=== PATIENT | female | born 1990 | race Caucasian/White ===

== ENCOUNTER 2016-08-22 21:05 | Emergency (ER) | payer MEDICAID ==
[2016-08-22 21:38] VITALS: TEMP 98.6; BMI 39.4
[2016-08-22 22:09] LABS: AUTOMATED BASOPHIL 0.6 % (0-2); AUTOMATED EOSINOPHIL 2.3 % (0-5); AUTOMATED LYMPH 29.8 % (17-44); AUTOMATED MONOCYTE 6.1 % (3-10); AUTOMATED NEUTROPHIL 61.2 % (45-76); MPV 8.4 fL (7.4-10.4)
[2016-08-22 22:10] LABS: LEUKOCYTES/URINE NEG (NEGATIVE); NITRITE/URINE NEG (NEGATIVE); RBC/URINE 0-2 (0-5); URINE OCCULT BLOOD NEG (NEG/TRACE); WBC/URINE 0-2 (0-5)
[2016-08-22 22:18] LABS: BLOOD UREA NITROGEN 8 MG/DL (7-17); CALCULATED OSMOLALITY 273 MOs/Kg (270-290); CHLORIDE 105 mEq/L (98-107); GLUCOSE 136 MG/DL (70-99); SODIUM LEVEL 142 mEq/L (137-146); TOTAL PROTEIN 7.7 G/DL (6.3-8.2)
--- NOTE | 2016-08-22 22:46 | EDPRACDOC ---
- General Information Chief Complaint: Abdominal Pain Stated Complaint: ABDOMINAL PAIN Time Seen by Provider: 08/22/16 22:36 Information Source: Patient Mode Of Arrival: Car Home Medications: Home Medications Tramadol HCl [Ultram] 50 mg PO Q4-6H #30 tablet 06/21/16 Ondansetron [Zofran Odt] 4 mg PO TID PRN #10 tab.rapdis 08/22/16 Ranitidine HCl 300 mg PO DAILY #30 tablet 08/22/16 Sulfamethoxazole/Trimethoprim [Bactrim Ds Tablet] 1 tab PO BID #20 tab 08/22/16 Allergies/Adverse Reactions: Allergies Allergy/AdvReac Type Severity Reaction Status Date / Time hydrocodone Allergy Severe Itching Verified 06/21/16 19:42 codeine Allergy Rash-Locali Verified 06/21/16 19:42 zed - History of Present Illness Onset: 4 months HPI: PT COMPLAINS OF UPPER AND LOWER ABD PAIN X 4 MTHS, STATES PAIN IS ACHING, HAS HAD NAUSEA BUT NO VOMITING, NO FEVER OR CHILLS, PT STATES NO MENSTRUAL PERIOD X 4 MTHS, STATES THAT SHE HAS TAKEN HOME PREG TEST X 2 WITHOUT RELIEF. PT ALSO COMPLAINS OF "BOIL" UNDER RIGHT ARM THAT IS DRAINING. Pain Location: Reports: Diffuse Pain Context: Reports: Spontaneous Pain Severity: Mild Pain Quality: Reports: Aching, Burning Pain Radiation: Reports: No Radiation Last Menstrual Period: 4 months ago : (unknown) Abortus: 2 Control Method: Reports: None Female Abdominal History: Reports: Abdominal Surgery () Modifying Factors: improves with: Food, Position, Movement Female Associated Signs & Symptoms: Reports: Nausea. Denies: Frequency, Vaginal Bleeding, Vomiting, Hematemesis, Anorexia, Diarrhea, Melena, Dysuria, Fever, Urgency, Hematuria, Chills, Vaginal Discharge Oral Intake: Normal Urinary Output: Normal ED Past Medical History - History Reviewed Yes Nurses notes reviewed and agree except as marked - Patient Medical History Respiratory History: Reports: Asthma GI/ History: Reports: Gastroesophageal Reflux Psychological History: Denies: Depression Surgical History: Reports: Tonsillectomy/Adnoidectomy - Family Medical History Reports: Hypertension, Diabetes, Cancer, Cardiac Disorders. Denies: Stroke - Social Medical History Smoking Status: Heavy tobacco smoker (5 or more cigarettes/day or daily pipe/ cigar) ETOH: None Substance Abuse: None EDM Review of Systems - Review of Systems Constitutional: negative: Chills, Fever Eyes: negative: Blurred Vision, Double Vision Ears: negative: Drainage Throat: negative: Pain Nose: negative: Congestion, Discharge Respiratory: negative: Cough, Shortness of Breath, Wheezing Cardiovascular: negative: Chest Pain, Palpitations Gastrointestinal: Nausea, Pain. negative: Diarrhea, Vomiting Genitourinary: negative: Dysuria, Frequency, Vaginal Discharge, Vaginal Bleeding Neurological: negative: Dizziness, Headache, Numbness, Weakness Musculoskeletal: No Symptoms Reported Integumentary: Wound - Physical Exam Constitutional: Alert (Awake), No apparent distress Oriented to: Time, Person, Place Last recorded Vital Signs: Last Vital Signs Temp 98.6 F 08/22/16 21:30 Pulse 95 08/22/16 21:30 Resp 20 08/22/16 21:30 BP 154/94 08/22/16 21:30 Pulse Ox 98 08/22/16 21:30 Oxygen Pulse Oxygen Saturation 98 O2 Device Room Air Oxygen Flow Rate Fraction of Inspired Oxygen ( FIO2) - HEENT Head: Normal ( normocephalic) Eye Exam: Normal (PERRL, EOMI, Sclera white) Oropharynx: Normal (Pharynx:Moist without exudate,Gums-no swelling) Tympanic Membrane: Normal ENT EAC: Normal TMJ: Normal Nose: No Symptoms Reported (septum midline) Neck: Normal (FROM, trachea at midline) - Respiratory/Cardiovascular Respiratory: Normal - CTA (BBS clear to auscultation without adventitious sounds ) Cardiovascular: Normal (RRR without murmur, gallop or rub) - GI Auscultation: Normal (NABS) Palpation: Normal (Soft,No rebound or guarding, non distended) Tenderness: Mild, Epigastric. negative: Guarding, Rebound, Rigidity Campos's Sign: Negative - Musculoskeletal Back: Normal (Non-Tender) Extremities: Normal (Normal tone, Pulses 2+ No cyanosis or edema, FROM) - Integumentary Skin: Warm, Dry, Other (2 SMALL 0.2 CM TENDER, FIRM ABSCESSES RIGHT AXILLA, NO DRAINAGE NOTED, NOT AMENABLE TO I&D AT THIS TIME) Lymphatics: Normal (no adenopathy) - Neurologic Memory Impaired: Normal Motor Function: Normal (Normal tone, Pulses 2+ No cyanosis or edema, FROM) Cranial Nerve: Normal (CN II-X11 intact sensation, strength 5/5) Cerebellar: Normal Mood Description: Normal Perception: Normal - Differential Diagnosis Constipation, IBS, UTI - Results 08/22/16 21:33 08/22/16 21:33 WBC 9.5 xk/uL (3.8-10.8) 08/22/16 21:33 RBC 4.58 xM/uL (4.20-5.40) 08/22/16 21:33 Hgb 13.5 g/dL (12.0-16.0) 08/22/16 21:33 Hct 40.3 % (36-47) 08/22/16 21:33 MCV 88 fL (81-99) 08/22/16 21:33 MCH 29.4 pg (27-32) 08/22/16 21:33 MCHC 33.5 g/dl (33-36) 08/22/16 21:33 RDW 13.2 % (11.5-14.5) 08/22/16 21:33 Plt Count 248 xk/uL (130-400) 08/22/16 21:33 MPV 8.4 fL (7.4-10.4) 08/22/16 21:33 Neut % (Auto) 61.2 % (45-76) 08/22/16 21:33 Lymph % (Auto) 29.8 % (17-44) 08/22/16 21:33 [place] % (Auto) 6.1 % (3-10) 08/22/16 21:33 Eos % (Auto) 2.3 % (0-5) 08/22/16 21:33 Baso % (Auto) 0.6 % (0-2) 08/22/16 21:33 Absolute Neuts (auto) 5.80 xk/uL (1.7-8.2) 08/22/16 21:33 Absolute Lymphs (auto) 2.76 xk/uL (0.65-4.75) 08/22/16 21:33 Sodium 142 mEq/L (137-146) 08/22/16 21:33 Potassium 3.4 mEq/L (3.5-5.1) L 08/22/16 21:33 Chloride 105 mEq/L (98-107) 08/22/16 21:33 Carbon Dioxide 24 mMOL/L (22-33) 08/22/16 21:33 Anion Gap 16 mEq/L (8-16) 08/22/16 21:33 BUN 8 MG/DL (7-17) 08/22/16 21:33 Creatinine 0.60 MG/DL (0.52-1.04) 08/22/16 21:33 Estimated GFR (MDRD) > 60 mL/min (>=60) 08/22/16 21:33 Glucose 136 MG/DL (70-99) H 08/22/16 21:33 Calculated Osmolality 273 MOs/Kg (270-290) 08/22/16 21:33 Calcium 9.0 MG/DL (8.4-10.2) 08/22/16 21:33 Total Bilirubin 0.5 MG/DL (0.2-1.3) 08/22/16 21:33 AST 24 IU/L (14-36) 08/22/16 21:33 ALT 32 IU/L (9-52) 08/22/16 21:33 Alkaline Phosphatase 69 IU/L (38-126) 08/22/16 21:33 Total Protein 7.7 G/DL (6.3-8.2) 08/22/16 21:33 Albumin 4.3 G/DL (3.5-5.0) 08/22/16 21:33 Lipase 44 U/L (23-300) 08/22/16 21:33 Urine Color Yellow 08/22/16 21:38 Urine Clarity Clear 08/22/16 21:38 Urine pH 7.0 (5.0-8.0) 08/22/16 21:38 Ur Specific [place] 1.010 (1.003-1.035) 08/22/16 21:38 Urine Protein 1+ (NEG/TRACE) H 08/22/16 21:38 Urine Glucose (UA) Neg (NEGATIVE) 08/22/16 21:38 Urine Ketones Neg (NEGATIVE) 08/22/16 21:38 Urine Occult Blood Neg (NEG/TRACE) 08/22/16 21:38 Urine Nitrite Neg (NEGATIVE) 08/22/16 21:38 Urine Bilirubin Neg (NEGATIVE) 08/22/16 21:38 Urine Urobilinogen 8 MG/DL (0-1) H 08/22/16 21:38 Ur Leukocyte Esterase Neg (NEGATIVE) 08/22/16 21:38 Urine RBC 0-2 (0-5) 08/22/16 21:38 Urine WBC 0-2 (0-5) 08/22/16 21:38 Ur Epithelial Cells 1+ 08/22/16 21:38 Urine Mucus Mod (NEG/OCC) H 08/22/16 21:38 Urine Sperm Occ (NONE) H 08/22/16 21:38 Urine Test Neg (NEGATIVE) 08/22/16 21:38 Lab Results 08/22/16 08/22/16 08/22/16 21:38 21:38 21:33 WBC 9.5 RBC 4.58 Hgb 13.5 Hct 40.3 MCV 88 MCH 29.4 MCHC 33.5 RDW 13.2 Plt Count 248 MPV 8.4 Neut % (Auto) 61.2 Lymph % (Auto) 29.8 [place] % (Auto) 6.1 Eos % (Auto) 2.3 Baso % (Auto) 0.6 Absolute Neuts (auto) 5.80 Absolute Lymphs (auto) 2.76 Sodium Potassium Chloride Carbon Dioxide Anion Gap BUN Creatinine Estimated GFR (MDRD) Glucose Calculated Osmolality Calcium Total Bilirubin AST ALT Alkaline Phosphatase Total Protein Albumin Lipase Urine Color Yellow Urine Clarity Clear Urine pH 7.0 Ur Specific [place] 1.010 Urine Protein 1+ H Urine Glucose (UA) Neg Urine Ketones Neg Urine Occult Blood Neg Urine Nitrite Neg Urine Bilirubin Neg Urine Urobilinogen 8 H Ur Leukocyte Esterase Neg Urine RBC 0-2 Urine WBC 0-2 Ur Epithelial Cells 1+ Urine Mucus Mod H Urine Sperm Occ H Urine Test Neg 08/22/16 21:33 WBC RBC Hgb Hct MCV MCH MCHC RDW Plt Count MPV Neut % (Auto) Lymph % (Auto) [place] % (Auto) Eos % (Auto) Baso % (Auto) Absolute Neuts (auto) Absolute Lymphs (auto) Sodium 142 Potassium 3.4 L Chloride 105 Carbon Dioxide 24 Anion Gap 16 BUN 8 Creatinine 0.60 Estimated GFR (MDRD) > 60 Glucose 136 H Calculated Osmolality 273 Calcium 9.0 Total Bilirubin 0.5 AST 24 ALT 32 Alkaline Phosphatase 69 Total Protein 7.7 Albumin 4.3 Lipase 44 Urine Color Urine Clarity Urine pH Ur Specific [place] Urine Protein Urine Glucose (UA) Urine Ketones Urine Occult Blood Urine Nitrite Urine Bilirubin Urine Urobilinogen Ur Leukocyte Esterase Urine RBC Urine WBC Ur Epithelial Cells Urine Mucus Urine Sperm Urine Test Decision Time to Discharge: 22:48 - Departure Disposition: Home Condition: Stable Final Diagnosis: Abdominal pain, Secondary amenorrhea, EARLY ABSCESS RIGHT AXILLA Instructions: Acute Abdominal Pain (ED) Education/Counseling Given To: Patient Education/Counseling Given Regarding: Diagnosis, Treatment, Prognosis, Follow Up Referrals: Ria Larsen MD [Staff Physician] - One Week Prescriptions: Ondansetron [Zofran Odt] 4 mg PO TID PRN #10 tab.rapdis PRN Reason: Nausea/Vomiting Ranitidine HCl 300 mg PO DAILY #30 tablet Sulfamethoxazole/Trimethoprim [Bactrim Ds Tablet] 1 tab PO BID #20 tab Additional Instructions: EAT A BLAND DIET ONLY, AVOID FRIED, FATTY, GREASY FOODS, RETURN TO THE ED FOR ANY WORSENING SYMPTOMS OR CONCERNS.
[2016-08-22 23:20] VITALS: BP 113/77; PULSE 72
== END 2016-08-22 23:11 | disposition home or self-care (01) ==
LOC: ED 21:05
DX: R10.13 Epigastric pain (principal); N91.1 Secondary amenorrhea; L02.411 Cutaneous abscess of right axilla; J45.909 Unspecified asthma, uncomplicated; K21.9 Gastro-esophageal reflux disease without esophagitis; F17.200 Nicotine dependence, unspecified, uncomplicated; Z79.899 Other long term (current) drug therapy
CPT/HCPCS: 36415; 80053; 81001; 81025; 83690; 85025; 99283